=== PATIENT | female | born 1995 | race Caucasian/White ===

== ENCOUNTER 2017-12-14 16:48 | Emergency (ER) | payer BC ==
[2017-12-14 16:58] VITALS: BP 126/85; PULSE 80; RESP 16; TEMP 98.1; O2SAT 99
--- NOTE | 2017-12-14 17:30 | EDPHY ---
General - History Smoking Status: Current every day smoker Time Seen by Provider: 12/14/17 17:17 Narrative: CHIEF COMPLAINT: Head injury dizziness HISTORY OF PRESENT ILLNESS: Patient complains of accidental head injury on Friday night. She was getting into a friend's car when the car door swung back quickly and struck her in the occiput. She denies any loss of consciousness. She did feel a sudden onset of headache. This was only at the site of the contact. Since then she has had a headache but waxes and wanes and has been steadily improving. No nausea. No vomiting. No visual disturbance. Some occasional dizziness and difficulty with thought process. This is also improving. No neck pain or stiffness. No laceration. No other associated complaints or modifying factors. REVIEW OF SYSTEMS: Ten systems reviewed and are negative unless otherwise noted in the HPI PCP: None SPECIALISTS: None PAST MEDICAL HISTORY: Denies any medical history. Denies any use of anticoagulants or bleeding disorders PAST SURGICAL HISTORY: No recent surgeries SOCIAL HISTORY: Daily smoker. Occasional alcohol marijuana use. Works in retail locally. Lives independently FAMILY HISTORY: Noncontributory EXAMINATION General Appearance: Alert, no distress Head: normocephalic, atraumatic. No Porter sign. No raccoon eyes. No depression. No laceration. No outward signs of trauma Eyes: Pupils equal and round, no conjunctival pallor or injection ENT, Mouth: Mucous membranes moist Neck: Normal inspection, supple, non-tender. No crepitus, step-off or deformity. No meningeal signs. Respiratory: Lungs are clear to auscultation. No wheezing rhonchi or crackles Cardiovascular: Regular rate and rhythm. No murmur Gastrointestinal: Abdomen is soft and nontender Back: non-tender, no bony abnormalities Neurological: GCS 15. Cranial nerves 2-12 grossly intact. A&O, nonfocal, normal gait. Normal heel walk. Normal toe walk. Normal nocbio-aj-eblo. No pronator drift. Skin: Warm and dry, no rash. No laceration hematoma. Extremities: Nontender, no pedal edema Psychiatric: Mood and affect normal DIFFERENTIAL DIAGNOSES: Including but not limited to closed head injury, concussion, intracranial hemorrhage, basilar skull fracture, post concussive symptoms MDM: 5:25 p.m. Closed head injury on Friday evening with low mechanism. No loss of consciousness. No signs of basilar skull fracture on exam. No meningeal signs. Completely normal neuro examination with full ambulation. Using [place] CT head rules she does not warrant CT scan of the head at this time. Additionally, I do not feel she warrants a CT scan clinically. We discussed closed head injury, possible duration of symptoms. We discussed ED precautions that would warrant return to emergency department. We discussed follow up with concussion specialist. I have answered all her questions and I do feel she is stable for discharge home at this time. SUPERVISION: This patient was independently evaluated without direct involvement of or examination by the attending physician. (Harjit Bazzi) Medical Decision Making: I did not see this patient while she was in the emergency department. However her care was discussed with the PA while the patient was in the department. I agree with treatment plan and management (Kaiser Duong) - Objective Vital Signs: Initial Vital Signs Temperature (C) 36.7 C 12/14/17 16:55 Heart Rate 80 12/14/17 16:55 Respiratory Rate 16 12/14/17 16:55 Blood Pressure 126/85 H 12/14/17 16:55 O2 Sat (%) 99 12/14/17 16:55 O2 Delivery Mode Room Air Allergies/Adverse Reactions: "all pain killers" Allergy (Intermediate, Uncoded 12/14/17 16:58) Hives Home Medications: Medication Instructions Recorded Nuvaring 12/14/17 Departure - Departure Disposition: Home, Routine, Self-Care Clinical Impression: Closed head injury without loss of consciousness Qualifiers: Encounter type: initial encounter Qualified Code(s): S09.90XA - Unspecified injury of head, initial encounter Condition: Good Instructions: Concussion (ED), Head Injury (ED) Additional Instructions: 1. Tylenol 650 mg every 6 hr as needed for headache 2. Ibuprofen 400-600 mg every 6-8 hours as needed for headache 3. Contact the on-call primary care physician Dr. Galloway as needed to establish primary care 4. Contact Dr. Coe for concussion follow-up as needed 5. ED precautions as discussed Referrals: Christy Galloway MD [Medical Doctor] - As per Instructions Naheed Coe MD [Medical Doctor] - As per Instructions Stand Alone Forms: Work Excuse
== END 2017-12-14 17:44 | disposition home or self-care (01) ==
DX: S09.90XA Unspecified injury of head, initial encounter (principal); F17.200 Nicotine dependence, unspecified, uncomplicated; W22.8XXA Striking against or struck by other objects, initial encounter; Y93.89 Activity, other specified